=== PATIENT | male | born 2000 ===

== ENCOUNTER 2020-06-09 19:23 | Emergency (ER) | payer SELFPAY ==
[~2020-06-09] VITALS: Ht 170.2 cm; Wt 70.8 kg
--- NOTE | 2020-06-09 20:39 | NUR ---
PT RESTING COMFORTABLY. EDP TO SEE.
--- NOTE | 2020-06-09 20:47 | NUR ---
Report from JOHN Dominguez. [facility].
[2020-06-09] MEDS ORDERED: IBUPROFEN 200 MG TABLET PO ONE (21:00)
[2020-06-09] MEDS ORDERED: IBUPROFEN 600 MG TABLET ONE (21:11)
[2020-06-09 21:12] VITALS: BP 132/87
== END 2020-06-09 21:32 | disposition home or self-care (01) ==
LOC: ED 21:31
DX: R07.89 Other chest pain (principal); R94.31 Abnormal electrocardiogram [ECG] [EKG]
CPT/HCPCS: 71045; 93005; 99283